=== PATIENT | male | born 1985 | race American Indian/Alaskan Native ===

== ENCOUNTER 2017-11-29 04:47 | Emergency (ER) | payer OTHER ==
[2017-11-29 06:04] LABS: Hematocrit 47.7 % (35.5-45.6); Hemoglobin 16.5 gm/dl (11.8-15.2); Mean Corpuscular HGB Conc 35 % (32-34); Mean Corpuscular Hemoglobin 31 pg (28-32); Mean Corpuscular Volume 88 fl (84-94); Platelet Count 183 K/mm3 (140-440); Red Cell Distribution Width 13.1 % (13.2-15.2)
[2017-11-29 06:06] LABS: BUN/Creatinine Ratio 11; Blood Urea Nitrogen 11 mg/dL (9-20); Calcium 8.9 mg/dL (8.4-10.2); Hemolysis Index 5
[2017-11-29 06:36] LABS: Amphetamine Screen,Urine PRESUMPTIVE NEGATIVE; Benzodiazepines Screen,Urine PRESUMPTIVE NEGATIVE; Cannabinoid Screen,Urine PRESUMPTIVE NEGATIVE; Cocaine Screen,Urine PRESUMPTIVE NEGATIVE; Methadone Screen,Urine PRESUMPTIVE NEGATIVE; Opiate Screen,Urine PRESUMPTIVE NEGATIVE
--- NOTE | 2017-11-29 07:05 | Cat Scan Report ---
FINAL REPORT EXAM: CT HEAD/BRAIN WO CON HISTORY: new onset seizure TECHNIQUE: Routine axial imaging was obtained of the brain without IV contrast. FINDINGS: There is no evidence of acute stroke or hemorrhage. The ventricular system is appropriate in size and is symmetric. The basal cisterns appear normal. The visualized sinuses are clear. The mastoid air cells are well pneumatized. The calvarium appears intact. IMPRESSION: No acute intracranial process.
--- NOTE | 2017-11-29 07:17 | Cat Scan Report ---
FINAL REPORT EXAM: CT CERVICAL SPINE WO CON HISTORY: fall with neck pain TECHNIQUE: Routine axial imaging was obtained of the cervical spine without IV contrast with sagittal and coronal reconstructions. FINDINGS: The disc heights and alignment are well maintained. There is no evidence of acute fracture. The canal size is normal. The nerve roots exit normally. There is minimal endplate spurring at C5. The prevertebral soft tissues and C1-C2 articulation appear intact. IMPRESSION: Within normal limits.
[2017-11-29 07:36] VITALS: BP 117/72
--- NOTE | 2017-11-29 07:48 | Emergency Department Report ---
ED General Adult HPI - General Chief complaint: Seizure Stated complaint: SEIZURE Time Seen by Provider: 11/29/17 06:15 Source: patient, EMS Mode of arrival: Stretcher Limitations: No Limitations - History of Present Illness Initial comments: This is a 32-year-old male in police custody. He is said to have had a possible seizure earlier this a.m. No drug or alcohol use was reported. He has a history of asthma. 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 I believe he is currently incarcerated. According to the [facility] consultation sheet for physical findings indicated the patient was combative I believe disoriented and incontinent of urine no injury was reported. He was given a milligram of IM Ativan. The patient has had a CT of his cervical spine and head prior to my arrival. These tests were normal per radiologist. The patient complains of some discomfort on range of motion of his shoulder which he is using without any apparent hesitation. -: Sudden Severity scale (0 -10): 0 Associated Symptoms: denies other symptoms - Related Data Previous Rx's Medication Instructions Recorded Last Taken Type levETIRAcetam [Keppra] 500 mg PO BID #60 tablet 11/29/17 Unknown Rx Allergies Allergy/AdvReac Type Severity Reaction Status Date / Time No Known Allergies Allergy Unverified 11/29/17 05:11 ED Review of Systems ROS: Stated complaint: SEIZURE Other details as noted in HPI Constitutional: denies: chills, fever Eyes: denies: eye pain, eye discharge, vision change ENT: denies: ear pain, throat pain Respiratory: denies: cough, shortness of breath, wheezing Cardiovascular: denies: chest pain, palpitations Endocrine: no symptoms reported Gastrointestinal: denies: abdominal pain, nausea, diarrhea Genitourinary: denies: urgency, dysuria Musculoskeletal: as per HPI (right shoulder sore). denies: back pain, joint swelling, arthralgia Skin: denies: rash, lesions Neurological: as per HPI. denies: headache, weakness, paresthesias Psychiatric: denies: anxiety, depression Hematological/Lymphatic: denies: easy bleeding, easy bruising ED Past Medical Hx - Past Medical History Previous Medical History?: Yes Hx Asthma: Yes - Surgical History Past Surgical History?: Yes Additional Surgical History: Right leg s/p - Social History Smoking Status: Former Smoker Substance Use Type: None - Medications Home Medications: Home Medications Medication Instructions Recorded Confirmed Last Taken Type levETIRAcetam [Keppra] 500 mg PO BID #60 tablet 11/29/17 Unknown Rx ED Physical Exam - General Limitations: No Limitations General appearance: alert, in no apparent distress - Head Head exam: Present: atraumatic, normocephalic - Eye Eye exam: Present: normal appearance, PERRL, EOMI. Absent: scleral icterus - ENT ENT exam: Present: mucous membranes moist. Absent: normal exam - Neck Neck exam: Present: normal inspection. Absent: tenderness, meningismus - Respiratory Respiratory exam: Present: normal lung sounds bilaterally. Absent: respiratory distress - Cardiovascular Cardiovascular Exam: Present: regular rate, normal rhythm. Absent: systolic murmur, diastolic murmur, rubs, gallop - GI/Abdominal GI/Abdominal exam: Present: soft, normal bowel sounds. Absent: distended, tenderness, guarding, rebound, rigid - Rectal Rectal exam: Present: deferred - Extremities Exam Extremities exam: Present: normal inspection, full ROM, other (range of motion of the shoulder and other joints without any pain no deformity). Absent: tenderness, calf tenderness - Back Exam Back exam: Present: normal inspection - Neurological Exam Neurological exam: Present: alert, oriented X3, CN II-XII intact. Absent: motor sensory deficit - Psychiatric Psychiatric exam: Present: normal affect, normal mood - Skin Skin exam: Present: warm, dry, intact, normal color. Absent: rash ED Course Vital Signs 11/29/17 11/29/17 11/29/17 04:52 05:00 05:04 Temperature 98.4 F Pulse Rate 97 H 97 H Respiratory 21 16 Rate Blood Pressure 126/73 132/69 Blood Pressure 132/69 [Left] O2 Sat by Pulse 93 96 95 Oximetry 11/29/17 11/29/17 11/29/17 05:15 05:30 05:46 Temperature Pulse Rate 91 H 94 H 88 Respiratory 16 12 17 Rate Blood Pressure 148/82 148/82 148/82 Blood Pressure [Left] O2 Sat by Pulse 97 98 97 Oximetry 11/29/17 11/29/17 11/29/17 05:52 06:00 06:15 Temperature Pulse Rate 86 83 Respiratory 16 16 17 Rate Blood Pressure 148/82 137/74 Blood Pressure [Left] O2 Sat by Pulse 95 97 97 Oximetry 11/29/17 07:35 Temperature Pulse Rate 77 Respiratory 14 Rate Blood Pressure Blood Pressure 117/72 [Left] O2 Sat by Pulse 95 Oximetry - Reevaluation(s) Reevaluation #1: I'm going to begin the patient on Keppra. Further follow-up per the long-term physician and consultation as needed. 11/29/17 07:48 ED Medical Decision Making - Lab Data Result diagrams: 11/29/17 05:35 11/29/17 05:35 Laboratory Results - last 24 hr 11/29/17 11/29/17 11/29/17 05:30 05:35 05:35 WBC 7.6 RBC 5.40 H Hgb 16.5 H Hct 47.7 H MCV 88 MCH 31 MCHC 35 H RDW 13.1 L Plt Count 183 Sodium 140 Potassium 4.2 Chloride 105.9 Carbon Dioxide 23 Anion Gap 15 BUN 11 Creatinine 1.0 Estimated GFR > 60 BUN/Creatinine Ratio 11 Glucose 105 H Calcium 8.9 Urine Opiates Screen Presumptive negative Urine Methadone Screen Presumptive negative Ur Barbiturates Screen Presumptive negative Ur Phencyclidine Scrn Presumptive negative Ur Amphetamines Screen Presumptive negative U Benzodiazepines Scrn Presumptive negative Urine Cocaine Screen Presumptive negative U Marijuana (THC) Screen Presumptive negative Drugs of Abuse Note Disclamer - Radiology Data Radiology results: report reviewed Critical care attestation.: If time is entered above; I have spent that time in minutes in the direct care of this critically ill patient, excluding procedure time. ED Disposition Clinical Impression: Generalized seizure Disposition: DC-01 TO HOME OR SELFCARE Is pt being admited?: No Does the pt Need Aspirin: No Condition: Stable Instructions: New-Onset Seizure in Adults (ED) Additional Instructions: Follow-up with long-term physician and consultation with a neurologist as recommended. Prescriptions: levETIRAcetam [Keppra] 500 mg PO BID #60 tablet Referrals: PRIMARY CARE [Primary Care Provider] - 3-5 Days Time of Disposition: 07:55
== END 2017-11-29 09:43 | disposition home or self-care (01) ==
LOC: ED 04:47 → EEVIPCON 04:47 → ED 09:43
DX: R56.9 Unspecified convulsions (principal); Z87.891 Personal history of nicotine dependence
CPT/HCPCS: 36415; 70450; 72125; 80048; 80307; 85027; 99285

== ENCOUNTER 2018-12-08 10:53 | Outpatient (CLI) | payer OTHER ==
--- NOTE | 2018-12-08 13:50 | Magnetic Resonance Report ---
MRI BRAIN WITHOUT AND WITH CONTRAST: 12/08/18 11:11:00 CLINICAL: Seizures TECHNIQUE: Axial diffusion, T1, FLAIR, gradient echo T2*, and coronal FLAIR, axial T2 and sagittal T1 plus coronal and axial postcontrast T1 sequences on a 1.5 Amy magnet. 20.0 cc of Multihance was injected intravenously for the contrast portion of the exam. Consent was obtained prior to the administration of contrast. FINDINGS: Normal ventricles and sulci. No restricted diffusion. No abnormal signal. No mass or enhancing lesion. Normal bilateral hippocampal size and signal. No hemorrhage, edema or extra-axial collection. Normal pituitary and optic chiasm. The brainstem and cerebellum are normal. Intact vascular flow voids. The orbits, sinuses and soft tissues are normal. Normal calvarium and skull base. IMPRESSION: Normal study.
== END 2018-12-08 10:54 | disposition home or self-care (01) ==
LOC: MRI 10:53
PROVIDERS: ATTEND Family Medicine
DX: R56.9 Unspecified convulsions (principal); J45.909 Unspecified asthma, uncomplicated
CPT/HCPCS: 70553; A9577